=== PATIENT | male | born 1980 ===

== ENCOUNTER 2017-06-28 07:58 | Outpatient (CLI) | payer OTHER ==
--- NOTE | 2017-06-28 09:46 | PRG ---
DATE OF SERVICE: 06/28/2017 CHIEF COMPLAINT: Ulceration left great toe. HISTORY OF PRESENT ILLNESS: A 37-year-old male presents today with an ulcer to the left great toe. He says it started as a blister in March. He had been cleaning it and keeping a dressing on it. A ter that he says in May that it became red, swollen, increased drainage. He had been having audra e fevers and chills. He went to Urgent Care, had it x-rayed, showed no signs of bone infection. The patient was placed on Keflex, he said he did a 10 day course of that and then went back to the Urgen t Care was then placed on Cipro. He says he has seen some improvement in the redness, but it continu es to be a problem with increasing swelling to the great toe as well as increased drainage. Denies n ausea, vomiting, fevers, chills at this time. PAST MEDICAL HISTORY: 1. Hypertension. 2. Diabetes for 2 years. The remaining past medical history, past surgical history, medications, allergies can be seen on the [facility] paper charts. REVIEW OF SYSTEMS: CONSTITUTIONAL: Denies nausea, vomiting, fevers, chills. NEUROLOGICAL: Relates numbness and tingling to bilateral lower extremities. INTEGUMENTARY: Open so re with swelling and drainage to the left great toe. PHYSICAL EXAMINATION: VITAL SIGNS: Temperature 97.9, pulse 94, respirations 18, blood pressure 118/65, blood sugar 130 thi s morning. CARDIOVASCULAR: Dorsalis pedis, posterior tibial pulses are palpable bilaterally and there is no birgit r growth to the feet. EXTREMITIES: Capillary refill time is immediate to the distal aspect of all toes. There is severe n onpitting edema to the left great toe. NEUROLOGICAL: Light touch and protective threshold is absent. DERMATOLOGIC: Ulceration to the left medial great toe measuring 2 cm x 2 cm x 1 cm of depth. It sutherland s probe to bone, 50% slough and 50% granulation tissue. Erythema extends on the entire toe to the me tatarsal phalangeal joint, moderate serosanguineous drainage from the wound. X-RAYS: I reviewed his films taken on 06/03/2017 which showed no signs of osteomyelitis or osseous e rosions or cortical irregularities. ASSESSMENT: 1. Presumptive osteomyelitis, left great toe. 2. 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 3. Diabetes with peripheral neuropathy. PLAN: 1. Send the patient for stat MRI to determine the extend to the infection and to help determine leve l of an amputation which will be most likely required. 2. The patient was given a prescription for Bactrim DS to take until we can get the amputation done. 3. Dress with Aquacel AG, gauze and wrap. 4. I will call the patient with results of his MRI, hopefully this will be done later today.
== END 2017-06-28 07:59 | disposition home or self-care (01) ==
LOC: WCC 07:58
PROVIDERS: ATTEND Podiatrist Foot & Ankle Surgery
DX: E11.621 Type 2 diabetes mellitus with foot ulcer (principal); E11.42 Type 2 diabetes mellitus with diabetic polyneuropathy; L97.524 Non-pressure chronic ulcer of other part of left foot with necrosis of bone; M86.8X7 Other osteomyelitis, ankle and foot
CPT/HCPCS: 97602; 99204; G0463

== ENCOUNTER 2017-07-01 15:12 | Inpatient (IN) | payer OTHER ==
[2017-07-01 15:59] LABS: #Basophils 0.1 thou/uL (0.0-0.2); #Eosinphils 0.2 thou/uL (0.0-0.7); #Lymphocytes 2.9 thou/uL (1.20-3.40); #Monocytes 0.6 thou/uL (0.11-0.59); #Neutrophils 4.6 thou/uL (1.40-6.50); %Eosinophils 2.9 % (0.0-10.0); %Lymphocytes 34.1 % (21.0-51.0); %Monocytes 7.5 % (0.0-10.0); %Neutrophils 54.5 % (42.0-75.0); Hemoglobin 13.7 g/dL (14.0-18.0); Mean Corpuscular HGB CONC 33.3 g/dL (32.0-36.0); Mean Corpuscular Hemoglobin 28.7 pg (27.0-31.0); Mean Corpuscular Volume 86.1 fl (80.0-94.0); Mean Platelet Volume 8.5 fL (7.4-10.4); Platelet Count 270 thou/uL (130-400); RBC Distribution Width 12.4 % (11.5-14.5); Red Blood Cell (RBC) Count 4.79 mill/uL (4.70-6.10); White Blood Cell (WBC) Count 8.4 thou/uL (4.8-10.8)
[2017-07-01 16:18] LABS: ALT (SGPT) 15 U/L (8-55); AST (SGOT) 14 U/L (5-34); Albumin 4.5 g/dL (3.5-5.0); Alkaline Phosphatase 96 U/L (40-150); Anion Gap 17 mmol/L (10-20); BUN (Urea Nitrogen) 19 mg/dL (8.9-20.6); Bilirubin, Total 0.5 mg/dL (0.2-1.2); Calc. Creatinine Clearance 0 mL/min (70-130); Carbon Dioxide 18 mmol/L (22-29); Chloride 103 mmol/L (98-107); Estimated GFR-MDRD 74; Globulin 3.8 g/dL (2.4-3.5); Glucose 184 mg/dL (70-105); Potassium 3.7 mmol/L (3.5-5.1); Protein, Total 8.3 g/dL (6.0-8.3); Sodium 134 mmol/L (136-145)
[2017-07-01 18:27] LABS: Hemoglobin A1c 11.7 % (4.0-6.0)
[2017-07-01] MEDS ORDERED: Piperacillin-Tazo-Dextrose,Iso 3.375 GM in Premix Bag 1 BAG IVPB SCH (19:30)
[2017-07-01] MEDS ORDERED: Sodium Chloride 0.45% 1,000 ML IV SCH (20:45)
[2017-07-01 20:50] VITALS: BMI 29.6
[2017-07-01] MEDS ORDERED: Piperacillin/Tazobactam 3.375 GM in Sodium Chloride 0.9% 100 ML IVPB SCH (21:00)
[2017-07-01] MEDS ORDERED: HYDROcodone/Acetaminophen 5/325 mg Tablet PO PRN (21:06)
[2017-07-01] MEDS ORDERED: Dextrose 50% Abboject 50 ML SYRINGE SLOW IVP PRN (21:06)
[2017-07-01] MEDS ORDERED: Dextrose 5% in Water 1,000 ML IV PRN (21:06)
[2017-07-01] MEDS ORDERED: Vancomycin HCl 1 GM in Sodium Chloride 0.9% 250 ML 250 ML IVPB SCH (21:06)
[2017-07-01] MEDS ORDERED: Ondansetron ODT 4 MG TAB PO PRN (21:06)
[2017-07-01] MEDS ORDERED: VANCOMYCIN IVPB PRN (21:18)
--- NOTE | 2017-07-01 21:55 | RAD ---
LEFT FOOT THREE VIEWS 07/01/17 HISTORY: Left toe infection, great toe. FINDINGS/IMPRESSION: There is fragmentation of the bones involving the distal aspect of the proximal phalanx and proximal aspect of the distal phalanx of the left great toe which is new since 06/03/17 and consistent with os teomyelitis. POS: NATALIE
[2017-07-01] MEDS: Docusate 100 MG CAP PO SCH (22:50)
[2017-07-01] MEDS: Famotidine/PF 20 mg/2ml Vial SLOW IVP SCH (22:50)
[2017-07-01] MEDS: Sodium Chloride 0.9% 1,000 ML IV SCH (22:50)
[2017-07-01] MEDS: Piperacillin/Tazobactam 4.5 GM in Sodium Chloride 0.9% 100 ML IVPB SCH (22:55)
[2017-07-01] MEDS: Vancomycin HCl 1.75 GM in Sodium Chloride 0.9% 500 ML IVPB SCH (23:05)
--- NOTE | 2017-07-01 23:32 | HP ---
CHIEF COMPLAINT: Left toe wound, diabetic foot ulcer. HISTORY OF PRESENT ILLNESS: This is a 37-year-old pleasant gentleman, who was apparently in his [facility], noticed a blister in March on the bottom of the left foot. He did not pay much attention to wait until about last 2 weeks when it became worse, swollen, and toe became swollen and blister became into an ulcer. He went to the [facility] and they did an MRI at that time, i ch showed osteomyelitis. He was sent to the emergency room for further evaluation and treatment. He denies any fever, chills, or any pain in the foot. The patient was given Bactrim, which did not imp rove his symptoms. PAST MEDICAL HISTORY: Significant for diabetes, hypertension, and hyperlipidemia. PAST SURGICAL HISTORY: Lipoma removal. PSYCH HISTORY: No depression. No anxiety. SOCIAL HISTORY: Socially drinks. Denies drug or smoking. FAMILY HISTORY: Negative for diabetes and hypertension. MEDICATIONS: Include lisinopril, metformin, atorvastatin, Bactrim DS, and Glyxambi. REVIEW OF SYSTEMS: Significant for left foot ulcer with discharge. Otherwise, no fever, no chills, no headache, no eye pain, no hearing loss, no latencies. No cough, no chest pain, diarrhea, dysuria, or polyuria. No memory or mood changes. No neck pain. PHYSICAL EXAMINATION: VITAL SIGNS: Blood pressure is 116/72, breathing comfortably. Temperature afebrile, pulse is 85. GENERAL: Patient is lying in bed, in no apparent distress. HEENT: Atraumatic and normocephalic. Pupils equally round, react to light. Extraocular movements i ntact. Mucous membranes moist. NECK: Supple. No JVD. CHEST: Breath sounds heard. There are no rales or rhonchi. HEART: S1, S2. No murmurs or gallops. ABDOMEN: Soft. EXTREMITIES: No cyanosis, clubbing, or edema. Distal pulses present. Left foot shows an ulcer with purulent discharge. LABORATORY DATA: Potassium is 3.7, creatinine 1.1. WBC count is 8.4, potassium is 3.7, hemoglobin i s 13, creatinine is 1.1, hemoglobin A1c is 11. ASSESSMENT AND PLAN: 1. Diabetic foot ulcer with evidence of osteomyelitis in the recent MRI done by the wound clinic. W yahaira will consult Dr. Austin and Dr. Servando Monge. IV with Zosyn and vancomycin. Blood cultures, woun d cultures, and follow with the patient and Wound Care consult with the patient. 2. Diabetes, poorly controlled. We will do insulin sliding scale. We will continue insulin sliding scale for now with the patient. 3. Hypertension. We will continue home medications. 4. Hyperlipidemia. Continue statins. 5. Sequential compression devices for deep venous thrombosis prophylaxis. I will follow the labs an d do the need for.
[2017-07-01] MEDS ORDERED: Piperacillin/Tazobactam 4.5 GM in Sodium Chloride 0.9% 100 ML IVPB SCH (23:59)
[2017-07-02] MEDS: Piperacillin/Tazobactam 4.5 GM in Sodium Chloride 0.9% 100 ML IVPB SCH ×3 (05:32→19:27)
[2017-07-02 05:36] LABS: #Basophils 0.1 thou/uL (0.0-0.2); #Eosinphils 0.3 thou/uL (0.0-0.7); #Lymphocytes 2.7 thou/uL (1.20-3.40); #Monocytes 0.7 thou/uL (0.11-0.59); #Neutrophils 2.5 thou/uL (1.40-6.50); %Basophils 1.3 % (0.0-1.0); %Eosinophils 4.4 % (0.0-10.0); %Lymphocytes 43.9 % (21.0-51.0); %Monocytes 10.3 % (0.0-10.0); %Neutrophils 40.1 % (42.0-75.0); Hemoglobin 12.8 g/dL (14.0-18.0); Mean Corpuscular HGB CONC 32.3 g/dL (32.0-36.0); Mean Corpuscular Hemoglobin 27.9 pg (27.0-31.0); Mean Corpuscular Volume 86.3 fl (80.0-94.0); Mean Platelet Volume 8.6 fL (7.4-10.4); Platelet Count 243 thou/uL (130-400); RBC Distribution Width 12.2 % (11.5-14.5); Red Blood Cell (RBC) Count 4.58 mill/uL (4.70-6.10); White Blood Cell (WBC) Count 6.3 thou/uL (4.8-10.8)
[2017-07-02 06:02] LABS: Anion Gap 12 mmol/L (10-20); BUN (Urea Nitrogen) 15 mg/dL (8.9-20.6); Calc. Creatinine Clearance 175 mL/min (70-130); Calcium 9.4 mg/dL (7.8-10.44); Carbon Dioxide 19 mmol/L (22-29); Chloride 111 mmol/L (98-107); Estimated GFR-MDRD Greater than 90; Glucose 146 mg/dL (70-105); Potassium 3.8 mmol/L (3.5-5.1); Sodium 138 mmol/L (136-145)
[2017-07-02] MEDS: Vancomycin HCl 1.75 GM in Sodium Chloride 0.9% 500 ML IVPB SCH ×2 (06:23→15:37)
[2017-07-02] MEDS: Docusate 100 MG CAP PO SCH ×2 (08:25→21:36)
[2017-07-02] MEDS: Famotidine/PF 20 mg/2ml Vial SLOW IVP SCH ×2 (08:57→21:37)
[2017-07-02] MEDS ORDERED: FLU VACC QS2017-18 36 mo. & older 0.5 ML SYRINGE IM ONE (09:00)
--- NOTE | 2017-07-02 09:08 | HP ---
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 He has been follo wed by Dr. Fernando Chaves as an outpatient. He has been seen by a national service officer. He developed a blister dur ing marching band instructions left great toe, progressing tried to get into wound care over the holi days, but could not. He presented with an MRI at an outside facility revealing osteomyelitis and ten don destruction of the left great toe and x-ray at this facility on admission demonstrating osteomyel itis of the left great toe. New relative to x-ray 06/03/2017. He has been admitted by hospitalist pablito carney seen. Dr. Austin has been consulted. Plan at this time is to amputate the left great toe through the proximal phalanx. He has good pedal pulses and no evidence of PAD. He has a diabetic callus, ri ght great toe. We will debride during the same anesthetic. ALLERGIES: IODINE. TOBACCO: None. ALCOHOL: None. MEDICATIONS: Bactrim b.i.d., Glyxambi 10 mg/5 mg tablet daily, metformin 1000 mg b.i.d., Lipitor 30 mg daily, and lisinopril 1 daily. PAST SURGICAL HISTORY: Lipoma resection in the past. PAST MEDICAL HISTORY: Noncontributory. REVIEW OF SYSTEMS: Ten point noncontributory. PHYSICAL EXAMINATION: VITAL SIGNS: Temperature 98.2, 76, 112/77. HEAD, EYES, EARS, NOSE, AND THROAT: Unremarkable. LUNGS: Clear to auscultation. CARDIAC: Regular rate and rhythm without murmur or gallop. ABDOMEN: Soft, nontender. EXTREMITIES: Palpable femoral, popliteal, dorsalis pedis, posterior tibial pulses. Diabetic callus medial. Right great toe, mild redness, but no edema. Left great toe reveals significant swelling an d edema. Ulceration distal medial great toe with communication to the underlying bone with Q-tip pro dean. Assessment; cellulitis and edema as noted. LABORATORY DATA: Normal CBC, normal comprehensive metabolic profile, renal function normal. ASSESSMENT AND PLAN: Diabetic infection, left great toe with osteomyelitis. Would plan recommend am putation of left great toe through the proximal phalanx by secondary intention, wound VAC application . We will ask spreading machine operator to arrange outpatient wound care, VAC management and [facility] appointment later in the week. We will plan early next week. We will plan debridement of callus, right great toe supe rficially. We will obtain orthotic shoe. Would expect he will need intravenous antibiotics for 48 h ours and we will review his wound later this week and hopefully plan discharge home on oral antibioti cs for a week and a half post-discharge and follow up as an outpatient in my office.
[2017-07-02] MEDS ORDERED: Fentanyl 100 MCG/2 ML VIAL ONE (10:56)
[2017-07-02] MEDS ORDERED: Midazolam HCl 2 mg/2 ml Vial ONE (11:19)
[2017-07-02] MEDS ORDERED: Bacitracin Zinc Ointment 30 gm TUBE ONE (12:00)
[2017-07-02] MEDS ORDERED: Morphine Sulfate 2 MG/ML SYRINGE SLOW IVP PRN (12:42)
[2017-07-02] MEDS ORDERED: Ondansetron HCl/PF 4 MG/2 ML Vial IVP PRN (12:42)
[2017-07-02] MEDS ORDERED: Promethazine HCl 25 MG/ML VIAL SLOW IVP PRN (12:42)
[2017-07-02] MEDS ORDERED: Meperidine HCl/PF 25 MG/ML VIAL SLOW IVP PRN (12:42)
[2017-07-02] MEDS ORDERED: Promethazine HCl 25 MG/ML VIAL IM PRN (12:42)
[2017-07-02] MEDS: Sodium Chloride 0.9% 1,000 ML IV SCH (12:54)
--- NOTE | 2017-07-02 14:25 | OP ---
DATE OF PROCEDURE: 07/02/2017 PREOPERATIVE DIAGNOSES: Diabetic infection, left great toe, with osteomyelitis of distal phalanx and tendon disruption (by MRI). Diabetic callus, right great toe. PROCEDURES: 1. Amputation of left great toe through the proximal phalanx. Wound Care followed the wound VAC. 2. Debridement of diabetic callus, medial right great toe. SURGEON: Dr. Servando Monge. ANESTHESIA: General. ESTIMATED BLOOD LOSS: Less than 10 mL. FINDINGS: Good blood supply to left great toe wound; superficial callus, right great toe without inv olvement in underlying subcutaneous tissue; and palpable pedal pulses in both feet. PROCEDURE IN DETAIL: Patient taken to the operating room where under general anesthesia, both feet w ere prepared with ChloraPrep and draped in routine fashion. Diabetic callus, plantar medial right gr eat toe excised sharply. This was superficial callus and skin and did not extend deeply. There was no infection. This did not extend down to where there was bleeding. Amputation of left great toe undertaken with a fish mouth-type incision, amputating the left great to e through the proximal phalanx, transected with a bone cutter, then resected proximally with a rongeu r. Connective tissue debrided sharply. There was good bleeding requiring cautery. Wound irrigated. Wound care team arrived and placed a wound VAC.
[2017-07-02] MEDS ORDERED: ePHEDrine/0.9% NaCl/PF SYRINGE 50 mg/10 ml ONE (15:47)
[2017-07-02] MEDS ORDERED: PROPOFOL 200 MG/20 ML VIAL ONE (15:47)
[2017-07-02] MEDS ORDERED: PHENYLEPHRINE-NS 100 MCG/ML 10 ML SYRINGE ONE (15:47)
[2017-07-02] MEDS ORDERED: Ondansetron HCl/PF 4 MG/2 ML Vial ONE (15:47)
[2017-07-02] MEDS ORDERED: Glycopyrrolate 0.2 MG/ML 5 ML SYRINGE ONE (15:47)
[2017-07-02] MEDS ORDERED: Metoclopramide HCl 10 MG/2 ML VIAL ONE (15:47)
[2017-07-02] MEDS: HumaLOG 300 UNITS/3 ML VIAL SC PRN (17:38)
--- NOTE | 2017-07-02 17:53 | PDOC.PN ---
- Subjective Encounter Start Date: 07/02/17 Encounter Start Time: 17:51 Patient seen and examined. No new complaints. No overnight events - Objective MAR Reviewed: Yes Vital Signs & Weight: Vital Signs (12 hours) Temp Pulse Resp BP Pulse Ox 07/02/17 13:10 98.6 F 100 18 95 07/02/17 08:00 98.4 F 72 18 118/79 96 07/02/17 06:20 98.2 F 76 18 112/77 96 Weight Admit Weight 250 lb Weight 250 lb I&O: 07/01/17 07/02/17 07/03/17 06:59 06:59 06:59 Intake Total 1800 Balance 1800 Result Diagrams: 07/02/17 04:31 07/02/17 04:30 Additional Labs: Accuchecks 07/02/17 07/02/17 07/02/17 16:38 13:20 05:08 POC Glucose 216 H 164 H 136 H 07/01/17 20:55 POC Glucose 183 H Phys Exam - Physical Examination Constitutional: NAD HEENT: PERRLA Neck: no JVD Respiratory: no wheezing Cardiovascular: no significant murmur Gastrointestinal: non-tender Musculoskeletal: pulses present lt toe ulcer Psychiatric: A&O x 3 Dx/Plan (1) Diabetic foot ulcer Code(s): E11.621 - TYPE 2 DIABETES MELLITUS WITH FOOT ULCER; L97.509 - NON- PRESSURE CHRONIC ULCER OTH PRT UNSP FOOT W UNSP SEVERITY Status: Acute (2) Osteomyelitis Code(s): M86.9 - OSTEOMYELITIS, UNSPECIFIED Status: Acute (3) Hyperlipemia Code(s): E78.5 - HYPERLIPIDEMIA, UNSPECIFIED Status: Acute (4) Neuropathy Code(s): G62.9 - POLYNEUROPATHY, UNSPECIFIED Status: Acute - Plan * f/u surg plan * f/u dr menjivar plan * cont abx
--- NOTE | 2017-07-02 19:00 | PRG ---
DATE OF SERVICE: 07/02/2017 SUBJECTIVE: Mr. Card's wound VAC has been approved. The patient could be discharged home , tomorrow with outpatient wound VAC and outpatient wound VAC appointment at [facility] and on oral antibiotics. He would follow up in my office in 2-3 weeks .
[2017-07-02 21:31] LABS: Vancomycin, Trough 37.5 ug/mL
--- NOTE | 2017-07-02 23:43 | CON ---
DATE OF CONSULTATION: 07/02/2017 HISTORY OF PRESENT ILLNESS: A 37-year-old patient who has history of type 2 diabetes mellitus, hyper tension and has had a chronic wound at the bottom of the left first toe and this area has developed i nto an ulcer. He apparently was seen at local wound care clinic and an MRI showed osteomyelitis; the refore, he was admitted for management. He just underwent amputation of the left first toe through t he proximal phalanx. The proximal elementary were polished with the rongeur. It is not clear if the cultures are submitted from the site it looks like. The previous cultures from the site on 06/03/20 17, probably from the Wound Care Clinic with Staph aureus and group B Streptococcus. Currently, the patient denies headaches, visual symptoms, sore throat, odynophagia, dysphagia. No cough or sputum p roduction or chest pain, no abdominal pain or diarrhea, no genitourinary symptoms, no other joint sym ptoms. No neurological symptoms. PAST MEDICAL HISTORY: Type 2 diabetes, hypertension, and hyperlipidemia. PAST SURGICAL HISTORY: Lipoma removal. SOCIAL HISTORY: Never smoker. FAMILY HISTORY: Originally from [place]. No other significant findings in the family history. MEDICATION LIST: Lisinopril, Glyxambi, Bactrim, atorvastatin, metformin. PHYSICAL EXAMINATION: VITAL SIGNS: Myriam vital signs. Blood pressure 118/79, pulse 72, respirations 18, O2 sat 95%. No d istress. SKIN: Shows the site of amputation of the proximal phalanx, left first toe. HEENT: Unremarkable. NECK: Supple. LUNGS: Clear to auscultation and percussion. HEART: Normal. ABDOMEN: Soft, nondistended or tender. No ascites. No bladder distention. : No genital abnormalities. EXTREMITIES: No joint inflammatory activity. Pulses are faintly palpable in dorsalis pedis, 1+ in p opliteals. LABORATORY: White cell count 8.4 and 6.3, hemoglobin 12.8, platelets 243 with 40% neutrophils. Sodi um 138, creatinine 0.92. Liver profile normal. Calcium 10, hemoglobin A1c 11.7, albumin 4.5. The m icrobiology as noted above. Imaging studies include foot x-ray from 06/03/2017 with subcutaneous emp hysema, left great toe and now had a foot x-ray from this admission with fragmentation bones involvin g the distal aspect of the proximal phalanx and proximal aspect distal phalanx of the left great toe, which was new from 06/03/2017. ASSESSMENT: 1. Diabetes type 2, neuropathy. 2. Chronic ulcer, which end up in osteomyelitis of the left great toe, status post partial amputatio n at the level of the proximal phalanx. It is not clear if sample was submitted for cultures and we will follow up the results if available. Otherwise, we will have to use the cultures from May s guidance. Vascular supply is somewhat questionable. Pulses are faintly palpable in dorsalis pedis and posterior tibialis. Cap refill is normal though. If the margin of clearance is good, then disc harged on oral Cipro and rifampin or oral Keflex plus doxycycline.
[2017-07-03] MEDS: Piperacillin/Tazobactam 4.5 GM in Sodium Chloride 0.9% 100 ML IVPB SCH ×3 (00:20→10:36)
[2017-07-03] MEDS: Acetaminophen 325 MG TAB PO PRN ×2 (00:24→10:36)
[2017-07-03] MEDS: Sodium Chloride 0.9% 1,000 ML IV SCH (01:54)
[2017-07-03 05:43] LABS: #Basophils 0.1 thou/uL (0.0-0.2); #Eosinphils 0.2 thou/uL (0.0-0.7); #Lymphocytes 2.3 thou/uL (1.20-3.40); #Monocytes 0.6 thou/uL (0.11-0.59); #Neutrophils 3.2 thou/uL (1.40-6.50); %Basophils 0.8 % (0.0-1.0); %Eosinophils 3.3 % (0.0-10.0); %Lymphocytes 36.9 % (21.0-51.0); %Monocytes 8.8 % (0.0-10.0); %Neutrophils 50.2 % (42.0-75.0); Hemoglobin 11.9 g/dL (14.0-18.0); Mean Corpuscular HGB CONC 32.5 g/dL (32.0-36.0); Mean Corpuscular Hemoglobin 28.3 pg (27.0-31.0); Mean Corpuscular Volume 86.9 fl (80.0-94.0); Mean Platelet Volume 8.5 fL (7.4-10.4); Platelet Count 221 thou/uL (130-400); RBC Distribution Width 12.4 % (11.5-14.5); White Blood Cell (WBC) Count 6.3 thou/uL (4.8-10.8)
[2017-07-03 06:29] LABS: Anion Gap 11 mmol/L (10-20); BUN (Urea Nitrogen) 11 mg/dL (8.9-20.6); Calc. Creatinine Clearance 150 mL/min (70-130); Calcium 8.9 mg/dL (7.8-10.44); Carbon Dioxide 22 mmol/L (22-29); Chloride 111 mmol/L (98-107); Estimated GFR-MDRD 77; Glucose 133 mg/dL (70-105); Potassium 3.5 mmol/L (3.5-5.1); Sodium 140 mmol/L (136-145)
[2017-07-03 07:12] VITALS: BP 112/72; TEMP 98.5
[2017-07-03] MEDS: Docusate 100 MG CAP PO SCH (08:21)
[2017-07-03] MEDS: Famotidine/PF 20 mg/2ml Vial SLOW IVP SCH (08:21)
[2017-07-03] MEDS ORDERED: Vancomycin HCl 1.25 GM in Sodium Chloride 0.9% 250 ML 250 ML IVPB SCH (10:00)
[2017-07-03] MEDS ORDERED: Cephalexin 250 MG CAP PO SCH (12:00)
[2017-07-03] MEDS: HumaLOG 300 UNITS/3 ML VIAL SC PRN (12:06)
--- NOTE | 2017-07-03 12:16 | DIS ---
DATE OF ADMISSION: 07/01/2017 DATE OF DISCHARGE: 07/03/2017 PRIMARY CARE PHYSICIAN: Fernando Chaves D.O. DISCHARGE DIAGNOSES: 1. Left great toe osteomyelitis. 2. The patient underwent amputation of left great toe through the proximal phalanx. CONDITION OF PATIENT ON THE DAY OF DISCHARGE: Stable. I assessed Mr. Card on the day of discha rge. He denies any chest pain or shortness of breath. Vital signs are stable. S1 and S2 are heard, regular. Lungs are clear to auscultation bilaterally. DISCHARGE MEDICATIONS: Lipitor 30 mg daily, Keflex 500 mg 4 times a day for 14 days, doxycycline 100 mg 2 times a day for 14 days, Glyxambi 1 tablet daily, lisinopril 30 mg daily, and metformin 1000 mg 2 times a day. HOSPITAL COURSE: Mr. Card is a pleasant 37-year-old gentleman, who was admitted to [facility] on 07/01/2017 for left great toe osteomyelitis. This was diagnosed on the basi s of left foot x-rays, which showed fragmentation of the bones involving the distal aspect of the pro ximal phalanx and similar aspect of the distal phalanx of the left great toe, which was new since 04/2017 and consistent with osteomyelitis. He was seen by General Surgery Service and underwent surg karla as described above on 07/02/2017. He was also seen by Infectious Diseases Service. He is being discharged home in a stable condition on oral antibiotics. CONSULTATIONS DURING THIS HOSPITALIZATION: General surgery, Dr. Servando Monge and Infectious Diseas es Dr. Piyush Austin. On the day of discharge, Mr. Card has a white count of 6300, hemoglobin 11.9, platelet count 221 ,000. Sodium 140, potassium 3.5, and creatinine 1.07. Mr. Card was approved for wound VAC prior to discharge. He is advised to follow up with General Surgery Service in 2-3 weeks and with Wound Care Clinic. He is also advised to follow up with his primary care physician in 3-5 days. Many thanks for allowing me to participate in Mr. Card's care. Please feel free to contact me w ith any questions or concerns. DISCHARGE DESTINATION: Home. TOTAL AMOUNT OF TIME SPENT COORDINATING THIS DISCHARGE: 33 minutes.
[2017-07-03] MEDS ORDERED: Doxycycline 100 MG CAP PO SCH (21:00)
== END 2017-07-03 15:00 | disposition home or self-care (01) | DRG 617 ==
LOC: ERS 15:12 → T4-A 19:54
PROVIDERS: ADMIT Internal Medicine; ATTEND Internal Medicine
PROC: 0Y6Q0Z1 Detachment at Left 1st Toe, High, Open Approach (ICD-10-PCS; principal; 2017-07-02)
PROC: 0HBMXZZ Excision of Right Foot Skin, External Approach (ICD-10-PCS; 2017-07-02)
DX: E11.69 Type 2 diabetes mellitus with other specified complication (principal); M86.9 Osteomyelitis, unspecified; L97.518 Non-pressure chronic ulcer of other part of right foot with other specified severity; E11.621 Type 2 diabetes mellitus with foot ulcer; L97.529 Non-pressure chronic ulcer of other part of left foot with unspecified severity; Z91.041 Radiographic dye allergy status; Z79.84 Long term (current) use of oral hypoglycemic drugs; I10 Essential (primary) hypertension; E78.5 Hyperlipidemia, unspecified; E11.42 Type 2 diabetes mellitus with diabetic polyneuropathy; L03.032 Cellulitis of left toe
CPT/HCPCS: 36415; 36416; 80048; 80053; 80202; 83036; 83605; 85025; 85652; 86140; 87040; 88305; 88311; 96365; 96366; G8978-GP-CH; G8979-GP-CH; G8980-GP-CH; J2250; J2405; J2543; J2704; J2765; J3010; J3370; J7050; S0028

== ENCOUNTER → 2017-07-04 | Outpatient (CLI) | payer OTHER ==
[~2017-07-04] MED LIST: Lidocaine 4% Topical Sol 50 ML BOT ONE; Sodium Chloride 0.9% 15 ML NEB ONE
== END ==
LOC: WCC 07:32
PROVIDERS: ATTEND Podiatrist Foot & Ankle Surgery
DX: T81.89XD Other complications of procedures, not elsewhere classified, subsequent encounter (principal); Z89.432 Acquired absence of left foot
CPT/HCPCS: 36416; 97605; A4218; J2001

== ENCOUNTER 2017-07-08 09:58 | Outpatient (CLI) | payer OTHER | END 2017-07-08 09:59 | disposition home or self-care (01) | LOC: WCC 09:58 | PROVIDERS: ATTEND Podiatrist Foot & Ankle Surgery | DX: T81.89XD Other complications of procedures, not elsewhere classified, subsequent encounter (principal); Z89.412 Acquired absence of left great toe | CPT/HCPCS: 97605 ==

== ENCOUNTER 2017-07-10 11:19 | Outpatient (CLI) | payer OTHER | END 2017-07-10 11:20 | disposition home or self-care (01) | LOC: WCC 11:19 | PROVIDERS: ATTEND Podiatrist Foot & Ankle Surgery | DX: T81.89XD Other complications of procedures, not elsewhere classified, subsequent encounter (principal); S98.122D Partial traumatic amputation of left great toe, subsequent encounter | CPT/HCPCS: 97605 ==

== ENCOUNTER 2017-07-15 10:52 | Outpatient (CLI) | payer OTHER ==
[2017-07-15] MEDS ORDERED: Sodium Chloride 0.9% 15 ML NEB ONE (17:25)
== END 2017-07-15 10:53 | disposition home or self-care (01) ==
LOC: WCC 10:52
PROVIDERS: ATTEND Podiatrist Foot & Ankle Surgery
DX: T87.89 Other complications of amputation stump (principal); Z89.412 Acquired absence of left great toe
CPT/HCPCS: 97605; A4218

== ENCOUNTER 2017-07-16 07:48 | Outpatient (CLI) | payer OTHER ==
--- NOTE | 2017-07-12 12:13 | PRG ---
DATE OF SERVICE: 07/12/2017 SUBJECTIVE: A 37-year-old male returns today for followup on left great toe, had osteomyelitis, whic h was diagnosed after last visit with MRI. He was admitted to the hospital and amputation was perfor med approximately 10 days ago. This was left open to heel secondarily amputation to the proximal pha lanx. He denies any nausea, vomiting, fevers or chills at this time. He is taking 2 antibiotics, Ke flex and he is uncertain of the other. PHYSICAL EXAMINATION: Ulcer to the left great toe amputation site measures 1.7 cm x 2.9 cm x 0.8 cm, 100% granular wound base, does not probe to bone or tendon. No periwound erythema, edema or warmth. No drainage coming from the wound base. ASSESSMENT: 1. Non-pressure chronic ulceration to the left great toe, status post partial amputation of left shannon lux. 2. Diabetes with peripheral neuropathy. PLAN: 1. Continue with antibiotics as ordered by Infectious Disease. 2. We will continue with wound VAC to the left great toe, 3 times a week dressing changes, 125 mm of continuous therapy. 3. The patient given a prescription for rolling knee scooter and temporary handicapped placard to ke ep him offloaded while this is healing. 4. The patient will follow up with me in 1 week.
[~2017-07-16 07:48] MED LIST changes: -Lidocaine 4% Topical Sol 50 ML BOT ONE
== END 2017-07-16 07:49 | disposition home or self-care (01) ==
LOC: WCC 07:48
PROVIDERS: ATTEND Podiatrist Foot & Ankle Surgery
DX: E11.621 Type 2 diabetes mellitus with foot ulcer (principal); L97.529 Non-pressure chronic ulcer of other part of left foot with unspecified severity; E11.42 Type 2 diabetes mellitus with diabetic polyneuropathy; Z89.422 Acquired absence of other left toe(s)
CPT/HCPCS: 97605; A4218

== ENCOUNTER 2017-07-17 13:32 | Outpatient (CLI) | payer OTHER ==
[2017-07-19] MEDS ORDERED: Sodium Chloride 0.9% 15 ML NEB ONE (15:52)
== END 2017-07-17 13:33 | disposition home or self-care (01) ==
LOC: WCC 13:32
PROVIDERS: ATTEND Podiatrist Foot & Ankle Surgery
DX: T81.89XD Other complications of procedures, not elsewhere classified, subsequent encounter (principal)
CPT/HCPCS: 97605

== ENCOUNTER 2017-07-19 09:50 | Outpatient (CLI) | payer OTHER ==
--- NOTE | 2017-07-19 11:01 | PRG ---
DATE OF SERVICE: 07/19/2017 SUBJECTIVE: This 37-year-old male returns today for follow status post left great toe amputation. [place] syed has been getting wound VAC changes 3 times a week, has been doing well with these changes, no compl aints at this time. Denies nausea, vomiting, fevers or chills. PHYSICAL EXAMINATION: Wound to the left great toe amputation site measuring 1.1 cm x 2.0 cm x 0.4 cm , 100% granular wound base. No periwound erythema, edema or warmth. Wound does not probe to bone. No drainage. No malodor. ASSESSMENT: 1. Non-pressure chronic ulceration to left great toe, status post left great toe amputation. 2. Diabetes with peripheral neuropathy. PLAN: 1. Full thickness debridement of subcutaneous tissue layer removing all nonviable tissue and biofilm from the wound base down to a bleeding granular wound base. The patient tolerated the procedure wel l. 2. We are going to continue with wound VAC for at least 1 more week, try to get this one central are a to fill in a little bit more. GranuFoam at 125 mm negative pressure continuous therapy, have 3 lindsay es a week changes. He will follow up with me in 1 week.
[2017-07-19] MEDS ORDERED: Sodium Chloride 0.9% 15 ML NEB ONE (15:42)
== END 2017-07-19 09:51 | disposition home or self-care (01) ==
LOC: WCC 09:50
PROVIDERS: ATTEND Podiatrist Foot & Ankle Surgery
DX: T81.89XD Other complications of procedures, not elsewhere classified, subsequent encounter (principal); L97.529 Non-pressure chronic ulcer of other part of left foot with unspecified severity; E11.42 Type 2 diabetes mellitus with diabetic polyneuropathy; Z89.412 Acquired absence of left great toe
CPT/HCPCS: A4218

== ENCOUNTER 2017-07-22 14:15 | Outpatient (CLI) | payer OTHER | END 2017-07-22 14:16 | disposition home or self-care (01) | LOC: WCC 14:15 | PROVIDERS: ATTEND Podiatrist Foot & Ankle Surgery | DX: T81.89XD Other complications of procedures, not elsewhere classified, subsequent encounter (principal); S98.122D Partial traumatic amputation of left great toe, subsequent encounter | CPT/HCPCS: 97605 ==

== ENCOUNTER 2017-07-24 13:27 | Outpatient (CLI) | payer OTHER | END 2017-07-24 13:28 | disposition home or self-care (01) | LOC: WCC 13:27 | PROVIDERS: ATTEND Podiatrist Foot & Ankle Surgery | DX: T81.89XD Other complications of procedures, not elsewhere classified, subsequent encounter (principal) | CPT/HCPCS: 97605 ==

== ENCOUNTER 2017-07-26 09:58 | Outpatient (CLI) | payer OTHER ==
--- NOTE | 2017-07-26 11:39 | PRG ---
DATE OF SERVICE: 07/26/2017 SUBJECTIVE: This is a 37-year-old male returns today for followup left great toe ulceration status p ost left great toe amputation. He has been getting wound VAC changes 3 times a week. He has been do ing well with VAC, no problems since last visit. Denies nausea, vomiting, fevers or chills. PHYSICAL EXAMINATION: Ulceration to the left great toe amputation site. The area is 0.5 cm x 1.1 cm , 0.1 cm of depth, it is 100% granular tissue. No periwound erythema, edema or warmth. ASSESSMENT: 1. Non-pressure chronic ulceration to left great toe, status post amputation of left great toe. 2. Diabetes with peripheral neuropathy. PLAN: 1. Full thickness debridement of the subcutaneous tissue layer of the wound down to a bleeding granu lar wound base, removing all nonviable tissue and biofilm from the wound base. 2. We are going to discontinue the wound VAC and start him on daily Promogran and miniport plus pad gauze dressings. He can do this daily and will follow up with me in 1 week.
[2017-07-29] MEDS ORDERED: Sodium Chloride 0.9% 15 ML NEB ONE (15:11)
== END 2017-07-26 09:59 | disposition home or self-care (01) ==
LOC: WCC 09:58
PROVIDERS: ATTEND Podiatrist Foot & Ankle Surgery
DX: E11.621 Type 2 diabetes mellitus with foot ulcer (principal); L97.529 Non-pressure chronic ulcer of other part of left foot with unspecified severity; E11.42 Type 2 diabetes mellitus with diabetic polyneuropathy; Z89.412 Acquired absence of left great toe

== ENCOUNTER 2017-08-02 10:02 | Outpatient (CLI) | payer OTHER ==
--- NOTE | 2017-08-02 11:31 | PRG ---
DATE OF SERVICE: 08/02/2017 SUBJECTIVE: This is a 37-year-old male who returns today for followup left great toe ulceration stat us post amputation of left great toe. He is doing well since last visit. He has been doing daily Pr omogran dressing changes, no concerns at this time. Denies nausea, vomiting, fevers or chills. PHYSICAL EXAMINATION: Ulceration left great toe measuring 0.4 cm x 1.2 cm x 0.1 cm, 90% yellow sloug hy material, 10% granulation tissue on debridement. This is 100% granular wound base, does not probe to tendon or bone. No periwound erythema, edema or warmth. ASSESSMENT: 1. Non-pressure chronic ulceration of the left great toe, status post left great toe amputation. 2. Diabetes with peripheral neuropathy. PLAN: Full thickness debridement of the subcutaneous tissue layer down to a bleeding granular wound base. The patient tolerated the procedure well. We removed all biofilm and nonviable tissues from t he wound base with dermal curet. The patient will continue daily Promogran dressing changes and foll ow up with me in 1 week.
[2017-08-02] MEDS ORDERED: Sodium Chloride 0.9% 15 ML NEB ONE (16:35)
== END 2017-08-02 10:03 | disposition home or self-care (01) ==
LOC: WCC 10:02
PROVIDERS: ATTEND Podiatrist Foot & Ankle Surgery
DX: E11.621 Type 2 diabetes mellitus with foot ulcer (principal); L97.529 Non-pressure chronic ulcer of other part of left foot with unspecified severity; E11.42 Type 2 diabetes mellitus with diabetic polyneuropathy; Z89.412 Acquired absence of left great toe
CPT/HCPCS: A4218

== ENCOUNTER 2017-08-23 09:59 | Outpatient (CLI) | payer OTHER ==
--- NOTE | 2017-08-23 11:50 | PRG ---
DATE OF SERVICE: 08/23/2017 SUBJECTIVE: This is a 37-year-old male returns today for followup left great toe amputation site [facility] eration, has been doing well over the last 2 weeks. Continue Promogran dressings as there has been n o drainage the last couple days and has been unable to apply Promogran because the wound is closed ov er. Denies any nausea, vomiting, fevers or chills. PHYSICAL EXAMINATION: Ulcer to the left hallux appears to be scabbed over. There is a 0.2 x 0.3 x 0 depth eschar. On removal, there is fresh intact epithelium. No full thickness wound present. No e rythema, edema or warmth. ASSESSMENT: Non-pressure chronic ulceration to the left great toe, status post left hallux amputatio n has resolved. PLAN: Protect the newly healed skin with a bandage for the next 2 weeks. Can apply moisturizing lot ion. Follow up with me in my clinic if he has any further concerns.
== END 2017-08-23 10:00 | disposition home or self-care (01) ==
LOC: WCC 09:59
PROVIDERS: ATTEND Podiatrist Foot & Ankle Surgery
DX: L97.529 Non-pressure chronic ulcer of other part of left foot with unspecified severity (principal); Z89.412 Acquired absence of left great toe